=== PATIENT | female | born 1990 ===

== ENCOUNTER 2020-03-21 08:34 | Emergency (ER) | payer SELFPAY ==
[2020-03-21 08:40] VITALS: BP 131/80
[2020-03-21] MEDS ORDERED: TETRACAINE 0.5% OPHTH SOLN 4ML OD ONE (11:37)
[2020-03-21] MEDS ORDERED: FLUORESCEIN 1 MG STRIP OP ONE (11:37)
--- NOTE | 2020-03-21 12:11 | Emergency Department Report ---
Eye Injury/Foreign Body - HPI Eye Location: Left Severity: Moderate Eye Symptoms: Eye Pain: Yes, Blurred Vision: Yes, Eye Redness: Yes, Grinding/Hammering Metal: No, Used Eye Protection: No, Contact Lens Use: No, Recalls Injury: No, Photophobia: No Other History: 30-year-old female complaining of a 3-month history of left eye redness and tearing. Over the last few days she has developed pain to her left eye and blurry vision. 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 She denies any known trauma or any foreign objects getting into her eye. ED Review of Systems ROS: Stated complaint: LT EYE RED BURNING/LOSS OF SIGHT Other details as noted in HPI Comment: All other systems reviewed and negative Constitutional: denies: chills, fever Eyes: eye pain, eye discharge (clear discharge) Respiratory: denies: cough, orthopnea Cardiovascular: denies: chest pain, palpitations Endocrine: denies: no symptoms reported Gastrointestinal: denies: abdominal pain, nausea Genitourinary: denies: urgency, dysuria, discharge Skin: denies: rash, lesions, change in color ED Past Medical Hx - Past Medical History Previous Medical History?: No - Surgical History Past Surgical History?: Yes Hx Cholecystectomy: Yes - Social History Smoking Status: Current Every Day Smoker Substance Use Type: Alcohol - Medications Home Medications: Home Medications Medication Instructions Recorded Confirmed Last Taken Type Erythromycin [Erythromycin Ophth 1 strip OS Q2H #1 tube 03/21/20 Unknown Rx Oint] Eye Injury Exam - Exam General: Vital signs noted. No distress. Alert and acting appropriately. - Visual Acuity Left Eye Exam: Left Injection, Left Eye Foreign Body (pinpoint uptake of fluorescein at 10 0'clock in the left eye. Questionalble foreign body vs corneal abrasion), Left Fluorescein Uptake, Left Photophobia, Neither Abnormal Pupil, Neither Lid Foreign Body, Neither Mucous Discharge, Neither Purulent Discharge, Neither Corneal Edema ED Course Vital Signs 03/21/20 08:37 Temperature 98.1 F Pulse Rate 89 Respiratory 18 Rate Blood Pressure 131/80 O2 Sat by Pulse 100 Oximetry ED Medical Decision Making - Medical Decision Making 1gtt tetracaine to left eye. Stained with fluoresceine strip and examined with crooks lamp. at 10:00 there is a small circular dot + uptake of dye, I irrigated unable to remove. . Prescribe erythromycin ophthalmic ointment follow-up with Dr. Ho ophthalmology in 1 to 2 days or return to the emergency room for any worsening pain or decreasing or change in vision. Critical Care Time: No Critical care attestation.: If time is entered above; I have spent that time in minutes in the direct care of this critically ill patient, excluding procedure time. ED Disposition Clinical Impression: Corneal abrasion Qualifiers: Encounter type: initial encounter Laterality: left Qualified Code(s): S05.02XA - Injury of conjunctiva and corneal abrasion without foreign body, left eye, initial encounter Foreign body of left eye Qualifiers: Encounter type: initial encounter Qualified Code(s): T15.92XA - Foreign body on external eye, part unspecified, left eye, initial encounter Disposition: TO HOME OR SELFCARE Is pt being admited?: No Does the pt Need Aspirin: No Condition: Stable Instructions: Corneal Abrasion (ED), Eye Foreign Body (ED) Additional Instructions: Follow-up with an eye doctor Dr. Read as soon as possible Use eye ointiment every 2 hrs while awake. Take over the counter tylenol or advil for pain Follow-up immediately to any emergency room if you develop loss of vision or worsening pain Prescriptions: Erythromycin [Erythromycin Ophth Oint] 1 strip OS Q2H #1 tube Referrals: EJ READ MD [Staff Physician] - 3-5 Days Time of Disposition: 12:19
== END 2020-03-21 12:24 | disposition home or self-care (01) ==
LOC: ED 08:34
DX: S05.02XA Injury of conjunctiva and corneal abrasion without foreign body, left eye, initial encounter (principal); T15.92XA Foreign body on external eye, part unspecified, left eye, initial encounter; F17.200 Nicotine dependence, unspecified, uncomplicated; Z79.899 Other long term (current) drug therapy; Z90.49 Acquired absence of other specified parts of digestive tract; X58.XXXA Exposure to other specified factors, initial encounter; Y93.89 Activity, other specified; Y92.89 Other specified places as the place of occurrence of the external cause; Y99.8 Other external cause status
CPT/HCPCS: 99283